=== PATIENT | male | born 1955 | race Caucasian/White ===

== ENCOUNTER 2016-09-22 08:13 | Emergency (ER) | payer MEDICARE ==
[2016-09-22 08:22] VITALS: BP 176/91; PULSE 69; RESP 17; TEMP 98
--- NOTE | 2016-09-22 08:36 | ED ---
Abdominal Pain HPI - General Chief Complaint: Abdominal Pain Stated Complaint: BLADDER PAIN Time Seen by Provider: 09/22/16 08:25 Source: patient, RN notes reviewed, old records reviewed Mode of arrival: ambulatory Limitations: no limitations - History of Present Illness Initial Comments: Is a 61-year-old male presenting to the emergency Department chief complaint of increased bladder pain for the past few weeks. Patient reports that he has history of bladder cancer. He reports that he has seen Dr. Samir wagner. Patient reports that he's noticed a foul odor to his urine. Patient reports that he was told that his urologist does not practice anymore and needs to follow-up with somebody new. Patient reports he did have a TURP procedure completed in July of this past year. Patient reports that afterwards he also is placed on antibiotics for a few days. He reports he was feeling fine after taking the antibiotics but over the past week or so he's had increased pain throughout the day of this lower bladder. Denies any back pain. He denies any fever or chills. Patient reports that he is trying to follow-up with a new urologist as well. Denies any vomiting, nausea, changes in bowel habits, shortness of breath, fever, chills, chest pain, headaches. - Related Data Previous Rx's Medication Instructions Recorded Ciprofloxacin HCl [Cipro] 500 mg PO Q12HR #14 tablet 09/22/16 Phenazopyridine [Pyridium] 100 mg PO TID #6 tablet 09/22/16 traMADol HCl [Ultram] 50 mg PO Q6H PRN #12 tab 09/22/16 Allergies Allergy/AdvReac Type Severity Reaction Status Date / Time No Known Allergies Allergy Verified 09/22/16 08:40 Review of Systems ROS Statement: Those systems with pertinent positive or pertinent negative responses have been documented in the HPI. ROS Other: All systems not noted in ROS Statement are negative. Past Medical History Past Medical History: Cancer History of Any Multi-Drug Resistant Organisms: None Reported Additional Past Surgical History / Comment(s): bladder surgery Past Psychological History: No Psychological Hx Reported Smoking Status: Former smoker Past Alcohol Use History: None Reported Past Drug Use History: None Reported General Exam - General Exam Comments Initial Comments: This is a pleasant 61-year-old male. No acute distress. Limitations: no limitations General appearance: alert, in no apparent distress Head exam: Present: atraumatic, normocephalic, normal inspection Eye exam: Present: normal appearance, PERRL, EOMI. Absent: scleral icterus, conjunctival injection, periorbital swelling ENT exam: Present: normal exam, normal oropharynx, mucous membranes moist Neck exam: Present: normal inspection. Absent: tenderness, meningismus, lymphadenopathy Respiratory exam: Present: normal lung sounds bilaterally. Absent: respiratory distress, wheezes, rales, rhonchi, stridor Cardiovascular Exam: Present: regular rate, normal rhythm, normal heart sounds. Absent: systolic murmur, diastolic murmur, rubs, gallop, clicks GI/Abdominal exam: Present: soft, normal bowel sounds. Absent: distended, tenderness, guarding, rebound, rigid Extremities exam: Present: normal inspection, full ROM, normal capillary refill. Absent: tenderness, pedal edema, joint swelling, calf tenderness Back exam: Present: normal inspection. Absent: tenderness, CVA tenderness (R), CVA tenderness (L) Neurological exam: Present: alert, oriented X3, CN II-XII intact Psychiatric exam: Present: normal affect, normal mood Skin exam: Present: warm, dry, intact, normal color. Absent: rash Course Vital Signs 09/22/16 08:18 Temperature 98.0 F Pulse Rate 69 Respiratory 17 Rate Blood Pressure 176/91 O2 Sat by Pulse 99 Oximetry Medical Decision Making - Medical Decision Making Is a 61-year-old male presenting to the emergency Department chief complaint of increased bladder pain for the past few weeks. Patient reports that he has history of bladder cancer. He reports that he has seen Dr. Samir wagner. Patient reports that he's noticed a foul odor to his urine. Patient reports that he was told that his urologist does not practice anymore and needs to follow-up with somebody new. Patient reports he did have a TURP procedure completed in July of this past year. Patient reports that afterwards he also is placed on antibiotics for a few days. He reports he was feeling fine after taking the antibiotics but over the past week or so he's had increased pain throughout the day of this lower bladder. Denies any back pain. She has no flank tenderness or abdominal tenderness. Patient appears clinically well and in no acute distress. Urinalysis completed. Urinalysis was reviewed and negative for any signs of severe infection. Discussed this case with Dr. Minor. Patient has no abdominal tenderness or any other concerning signs or symptoms at this time. Discussed that he needs to continue to follow-up with a urologist for this chronic pain. Is likely related to either return cancer or continuing to heal after his recent TURP procedure. will be given a referral for Dr. Alexx Madrigal. Patient is mainly concerned that the pain at this time. Discussed that he discharged patient on pain medication and Pyridium for bladder spasms. Patient is also concerned due to the follow odor of his urine that he's had. We will discharge him on Cipro but advised him to follow-up with the urologist soon. - Lab Data Lab Results 09/22/16 Range/Units 08:28 Urine Color Yellow Urine Appearance Clear (Clear) Urine pH 6.0 (5.0-8.0) Ur Specific [place] 1.015 (1.001-1.035) Urine Protein Negative (Negative) Urine Glucose (UA) Negative (Negative) Urine Ketones Negative (Negative) Urine Blood Negative (Negative) Urine Nitrite Negative (Negative) Urine Bilirubin Negative (Negative) Urine Urobilinogen <2.0 (<2.0) mg/dL Ur Leukocyte Esterase Negative (Negative) Disposition Clinical Impression: Dysuria, History of bladder cancer Disposition: HOME SELF-CARE Condition: Good Instructions: Dysuria (ED) Additional Instructions: Patient advised to get her medical records from previous urologist and follow- up with Dr. Martin. Patient can take the medications as prescribed. Follow-up with primary care provider as well. Return to the emergency department if any alarming signs or symptoms occur. Prescriptions: Ciprofloxacin HCl [Cipro] 500 mg PO Q12HR #14 tablet Phenazopyridine [Pyridium] 100 mg PO TID #6 tablet traMADol HCl [Ultram] 50 mg PO Q6H PRN #12 tab PRN Reason: Pain Referrals: Jhonny Navarro MD [Primary Care Provider] - 1-2 days Kvng Martin MD [STAFF PHYSICIAN] - 1-2 days Time of Disposition: 08:59
[2016-09-22 08:44] LABS: Appearance,Urine Clear (Clear); Bilirubin,Urine Negative (Negative); Glucose,Urine (UA) Negative (Negative); Ketones,Urine Negative (Negative); Leukocyte Esterase,Urine Negative (Negative); Nitrite,Urine Negative (Negative); Protein,Urine Negative (Negative); Specific Gravity,Urine 1.015 (1.001-1.035); UA Billing (MACRO vs. MICRO) CHEM; Urobilinogen,Urine <2.0 mg/dL (<2.0)
== END 2016-09-22 09:15 | disposition home or self-care (01) ==
LOC: EC 08:13
DX: R30.0 Dysuria (principal); Z85.51 Personal history of malignant neoplasm of bladder; R39.89 Other symptoms and signs involving the genitourinary system; Z87.891 Personal history of nicotine dependence; Z90.79 Acquired absence of other genital organ(s)
CPT/HCPCS: 81003; 99284

== ENCOUNTER → 2017-09-20 | Outpatient (CLI) | payer OTHER ==
[2017-09-20 17:35] LABS: ALT 31 U/L (21-72); AST 27 U/L (17-59); Albumin 4.6 g/dL (3.5-5.0); Alkaline Phosphatase 78 U/L (38-126); Anion Gap 12 mmol/L; Blood Urea Nitrogen 19 mg/dL (9-20); Calcium 9.9 mg/dL (8.4-10.2); Carbon Dioxide 27 mmol/L (22-30); Chloride 100 mmol/L (98-107); Glucose 81 mg/dL (74-99); Potassium 4.8 mmol/L (3.5-5.1); Sodium 139 mmol/L (137-145); Total Bilirubin 0.9 mg/dL (0.2-1.3); Total Protein 7.2 g/dL (6.3-8.2)
[2017-09-21 01:56] LABS: Hemoglobin A1C 5.2 % (4.0-6.0)
== END | disposition home or self-care (01) ==
LOC: LABWHC1 16:28
PROVIDERS: ATTEND Family Medicine
DX: E03.9 Hypothyroidism, unspecified (principal); E11.9 Type 2 diabetes mellitus without complications; R68.89 Other general symptoms and signs
CPT/HCPCS: 36415; 80053; 83036; 84443